=== PATIENT | male | born 1970 | race Caucasian/White ===

== ENCOUNTER → 2021-05-02 11:46 | Outpatient (CLI) | payer OTHER, SELFPAY ==
--- NOTE | 2021-05-02 | DI.MRI.S_ITS ---
PROCEDURE: MR SHOULDER RT WO CON INDICATIONS: Pain in right shoulder TECHNIQUE: Noncontrast oblique coronal T2 fast spin echo with fat saturation, oblique sagittal T1 spin echo and T2 fast spin echo with fat saturation, axial T1 spin echo and T2 fast spin echo with fat saturation through the shoulder. COMPARISON: None. FINDINGS: Image quality: Excellent. Rotator cuff: The supraspinatus, infraspinatus, subscapularis, and teres minor appear intact. There is mild tendinopathy in the distal subscapularis tendon. Sagittal images demonstrate no fatty muscle atrophy. Bones and bursae: No bone marrow contusions or fractures. There is moderate acromioclavicular joint degeneration including periarticular bone marrow and soft tissue edema. The acromion demonstrates conventional anatomy, without an os acromiale. A small amount of subacromial/subdeltoid bursal fluid is present. Capsule and soft tissues: Labrum demonstrates mild degenerative signal in the posterosuperior labrum. The long head of the biceps tendon demonstrates normal location and morphology. The rotator interval appears normal, without fibrosis. The coracohumeral ligament is normal in thickness. IMPRESSION: 1. Moderate acromioclavicular joint degeneration with a small amount of subacromial/subdeltoid bursal fluid. 2. Mild tendinopathy in the subscapularis tendon distally without a discrete rotator cuff tear. Dictated by: Дмитрий Fischer M.D. on 05/02/2021 at 13:38 Approved by: Дмитрий Fischer M.D. on 05/02/2021 at 13:42
== END ==
PROVIDERS: Referring Provider Internal Medicine; Visit Provider Internal Medicine
DX: M25.511 Pain in right shoulder (principal); M19.011 Primary osteoarthritis, right shoulder
CPT/HCPCS: 73221

== ENCOUNTER 2023-08-05 18:02 | Emergency (ER) | payer OTHER, SELFPAY ==
[2023-08-05] VITALS (10 sets, daily range): BP systolic 119–143; BP diastolic 73–94; PULSE 56–64; RESP 16; TEMP 36.4; O2SAT 95–98; BMI 34.7
--- NOTE | 2023-08-05 18:46 | ED.GENADULT ---
HPI - General Adult General Chief complaint: Abdominal Pain Stated complaint: abd and back pain Time Seen by Provider: 08/05/23 18:32 Source: patient and family Mode of arrival: Ambulatory History of Present Illness HPI narrative: 52-year-old male here for evaluation of what initially started as right-sided flank pain a couple days ago and has continued his right-sided flank pain but now has left-sided abdominal pain. Also has had loose stools for the past couple days. No recent travel. No recent antibiotics. No urinary symptoms. No nausea or vomiting. Has had bilateral inguinal hernia repairs in the past but no other abdominal surgeries. No fevers. Has not tried anything for the symptoms prior to arrival. Related Data Allergies Allergy/AdvReac Type Severity Reaction Status Date / Time niacin Allergy Verified 08/05/23 18:16 Review of Systems Constitutional Constitutional: Reports system reviewed and no additional complaints, except as documented Cardiovascular Cardiovascular: Reports system reviewed and no additional complaints, except as documented Respiratory Respiratory: Reports system reviewed and no additional complaints, except as documented Gastrointestinal Gastrointestinal: Reports system reviewed and no additional complaints, except as documented Genitourinary Genitourinary: Reports system reviewed and no additional complaints, except as documented Integumentary/Breasts Skin/Breast: Reports system reviewed and no additional complaints, except as documented Patient History Social History Smoking Status: Former smoker Smoking Status: Former smoker Substance Use Type: marijuana Exam Initial Vital Signs Initial Vital Signs: Vital Signs Temperature 97.5 F L 08/05/23 18:12 Pulse Rate 57 L 08/05/23 18:12 Respiratory Rate 16 08/05/23 18:12 Blood Pressure 131/85 08/05/23 18:12 Pulse Oximetry 98 08/05/23 18:12 Oxygen Delivery Method Room Air 08/05/23 18:12 Const General: cooperative, comfortable and No ill appearing HENMT Head: normal to inspection and normocephalic GI Inspection: normal to inspection Palpation: soft, No firm and tender (Left-sided abdomen) Back/Spine/Pelvis Back: No CVA tenderness Neuro General: patient alert, patient awake and moves all extremities Extrem General: normal to inspection and capillary refill normal Course Orders Ordered: ED Orders 08/05/23 18:30 Complete Blood Count AUTO DIFF Stat Comprehensive Metabolic Panel Stat Lipase Stat 08/05/23 18:46 CT abdomen pelvis w con Stat Discontinued Medications Ondansetron HCl (Ondansetron 4 Mg/2 Ml Inj) 4 mg IV NOW PRN PRN Reason: Nausea And Vomiting Ondansetron HCl (Ondansetron 4 Mg Odt) 4 mg PO NOW PRN PRN Reason: Nausea And Vomiting Vital Signs Vital signs: Vital Signs - 8 hr 08/05/23 18:12 08/05/23 18:18 08/05/23 18:26 Temperature 97.5 F L Pulse Rate 57 L 64 57 L Respiratory Rate 16 Blood Pressure 131/85 Pulse Oximetry 98 95 98 Oxygen Delivery Method Room Air 08/05/23 18:26 08/05/23 18:30 08/05/23 18:31 Temperature Pulse Rate 60 57 L Respiratory Rate Blood Pressure 119/73 Pulse Oximetry 97 98 Oxygen Delivery Method 08/05/23 18:31 08/05/23 19:00 08/05/23 19:00 Temperature Pulse Rate 56 L Respiratory Rate Blood Pressure 137/81 134/81 Pulse Oximetry 96 Oxygen Delivery Method 08/05/23 19:30 08/05/23 20:00 08/05/23 20:30 Temperature Pulse Rate 56 L 57 L 58 L Respiratory Rate Blood Pressure Pulse Oximetry 95 97 98 Oxygen Delivery Method 08/05/23 20:38 08/05/23 20:38 Temperature Pulse Rate 57 L Respiratory Rate Blood Pressure 143/94 H Pulse Oximetry 97 Oxygen Delivery Method Room Air Medical Decision Making Lab Data Lab results reviewed: Yes I reviewed the patient's lab results. 08/05/23 18:30 08/05/23 18:30 Labs: Lab Results 08/05/23 Range/Units 18:30 WBC 6.3 (4.5-11.0) X10^3/uL RBC 4.90 (4.5-5.9) X10^6/uL Hgb 14.9 (13.5-17.5) g/dL Hct 42.9 (41-53) % MCV 87.6 (80-100) fL MCH 30.5 (26-34) PG MCHC 34.8 (30-36) % RDW 13.2 (11.6-14.8) % Plt Count 190 (150-400) X10^3/uL Neut % (Auto) 52.0 (50-75) % Lymph % (Auto) 28.9 (25-40) % [place] % (Auto) 12.7 (3-14) % Eos % (Auto) 5.6 H (2-4) % Baso % (Auto) 0.8 (0-2) % Neut # (Auto) 3300 (6564-5436) /uL Lymph # (Auto) 1800 (2015-7349) /uL [place] # (Auto) 800 (0-900) /uL Eos # (Auto) 400 (0-450) /uL Baso # (Auto) 100 (0-100) /uL Sodium 135 L (137-145) mmol/L Potassium 3.6 (3.4-5.1) mmol/L Chloride 104 (98-107) mmol/L Carbon Dioxide 23 (22-32) mmol/L BUN 13 (9-20) mg/dL Creatinine 0.94 (0.66-1.25) mg/dL Estimated GFR > 60 (>60) mL/min BUN/Creatinine Ratio 13.8 (6-22) Glucose 104 H (70-100) mg/dL Calcium 8.5 (8.4-10.2) mg/dL Total Bilirubin 0.7 (0.2-1.3) mg/dL AST 44 (17-59) IU/L ALT 65 H (<50) IU/L Alkaline Phosphatase 81 (38-126) U/L Total Protein 7.5 (6.3-8.2) g/dL Albumin 4.4 (3.5-5.0) g/dL Globulin 3.1 (1.7-4.1) g/dL Albumin/Globulin Ratio 1.4 (1.0-2.8) Lipase 74 (23-300) U/L Urine Dip Bedside Urine Glucose Negative Bedside Urine Bilirubin - Negative Bedside Urine Ketone - Negative Urine Specific [place] 1.005 Bedside Urine Occult Blood - Negative Bedside Urine pH 6.0 Bedside Urine Protein - Negative Bedside Urine Urobilinogen - Negative Bedside Urine Nitrite - Negative Bedside Urine Leukocytes - Negative Esterase Point of care testing: Urine Dip Bedside Urine Glucose Negative Bedside Urine Bilirubin - Negative Bedside Urine Ketone - Negative Urine Specific [place] 1.005 Bedside Urine Occult Blood - Negative Bedside Urine pH 6.0 Bedside Urine Protein - Negative Bedside Urine Urobilinogen - Negative Bedside Urine Nitrite - Negative Bedside Urine Leukocytes - Negative Esterase Imaging Data CT scan - abdomen/pelvis: Radiologist's Impression: PROCEDURE: CT ABDOMEN PELVIS W CON INDICATIONS: R flank pain and LLQ abd pain TECHNIQUE: After the administration of intravenous contrast, axial sections acquired from the lung bases to the pubic symphysis. Coronal and sagittal reformats were performed. For radiation dose reduction, the following was used: automated exposure control, adjustment of mA and/or kV according to patient size. COMPARISON: Outside Film, CT, CT ABDOMEN PELVIS WITH CONTRAST, 07/08/2020, 9:52. FINDINGS: Image quality: Diagnostic. Lower Chest: No significant findings. ABDOMEN: Liver: No solid mass. There are a few scattered subcentimeter hepatic hypodensities which are too small to accurately characterize but likely represent cysts versus hemangiomas. Gallbladder: No radiopaque gallstones or wall thickening. Biliary ducts: No biliary dilation. Pancreas: No ductal dilation. Spleen: Mild splenomegaly. Adrenal Glands: No adrenal nodules. Kidneys and Ureters: No hydronephrosis. No solid mass. No complex renal cystic lesion which requires follow up. Stomach and Bowel: Normal colonic caliber, without significant wall thickening. Scattered colonic diverticula without acute inflammation. Normal appendix. Peritoneum: No abnormal intraperitoneal fluid. No free air. Ventral Wall: There is a fat-containing umbilical hernia without acute inflammation. Abdominal Nodes: No retroperitoneal or mesenteric adenopathy by size criteria. Vessels: Scattered atherosclerotic calcifications of the abdominal aorta and iliac vessels without aneurysmal dilatation. The inferior vena cava appears patent. PELVIS: Pelvic Organs: Unremarkable. Bladder: No bladder wall thickening, accounting for underdistention. Pelvic Nodes: No enlarged lymph nodes. Miscellaneous: Stable postsurgical changes of left inguinal hernia repair. Stable appearance of lobulated collection near the proximal margins of the right inguinal canal. Bones: No aggressive osseous abnormality. IMPRESSION: CT abdomen and pelvis without acute abnormalities to explain patient's symptoms. Colonic diverticulosis without acute diverticulitis. Normal appendix. No evidence for obstructive uropathy. Other chronic findings as above. MDM Narrative Medical decision making narrative: Patient does have a benign exam. Labs are unremarkable. CT scan shows no acute pathology. No skin changes concerning for zoster. No fevers. No urinary symptoms. Unsure the exact etiology however there was no indication for antibiotics. No indication for emergent surgical consultation. He has not had a colonoscopy up to this point. Advised that he talk with his primary doctor about further workup and was given specific return precautions. He expressed understanding and agreement. Discharge Plan Departure Patient Disposition: Home Clinical Impression: Acute right flank pain, Abdominal pain Instructions: DI for Abdominal Pain-Adult Activity Restrictions/Additional Instructions: I do recommend that you talk with your primary doctor about further evaluation if your symptoms do not improve in the next couple days. If your symptoms worsen please return to the emergency department. You can try Tylenol and or ibuprofen for discomfort. Return to the emergency department for new symptoms. Referrals: Miscellaneous,Doctor, [Primary Care Provider] - Stand Alone Forms: Patient Portal/API
[2023-08-05 18:49] LABS: Add Manual Diff / Slide Review NO; Basophils Absolute Auto 100 /uL (0-100); Basophils Percent Auto 0.8 % (0-2); Eosinophils Absolute Auto 400 /uL (0-450); Eosinophils Percent Auto 5.6 % (2-4); Hematocrit 42.9 % (41-53); Hemoglobin 14.9 g/dL (13.5-17.5); Lymphocytes Absolute Auto 1800 /uL (1100-4500); Lymphocytes Percent Auto 28.9 % (25-40); Mean Corpuscular HGB Conc 34.8 % (30-36); Mean Corpuscular Hemoglobin 30.5 PG (26-34); Mean Corpuscular Volume 87.6 fL (80-100); Monocytes Absolute Auto 800 /uL (0-900); Monocytes Percent Auto 12.7 % (3-14); Neutrophils Absolute Auto 3300 /uL (1500-7000); Platelet Count 190 X10^3/uL (150-400); Red Cell Distribution Width 13.2 % (11.6-14.8); White Blood Cell Count 6.3 X10^3/uL (4.5-11.0)
[2023-08-05 18:57] LABS: Alanine Aminotransferase 65 IU/L (<50); Albumin 4.4 g/dL (3.5-5.0); Albumin Globulin Ratio 1.4 (1.0-2.8); Alkaline Phosphatase 81 U/L (38-126); Aspartate Aminotransferase 44 IU/L (17-59); BUN Creatinine Ratio 13.8 (6-22); Bilirubin Total 0.7 mg/dL (0.2-1.3); Blood Urea Nitrogen 13 mg/dL (9-20); Calcium 8.5 mg/dL (8.4-10.2); Carbon Dioxide 23 mmol/L (22-32); Chloride 104 mmol/L (98-107); Estimated Glomerular Filt Rate > 60 mL/min (>60); Globulin 3.1 g/dL (1.7-4.1); Glucose 104 mg/dL (70-100); HEMOLYSIS < 15 (0-50); Lipase 74 U/L (23-300); Potassium 3.6 mmol/L (3.4-5.1); Sodium 135 mmol/L (137-145); Total Protein 7.5 g/dL (6.3-8.2)
== END 2023-08-05 20:42 | disposition home or self-care (01) ==
PROVIDERS: Emergency Provider Emergency Medicine
DX: R10.9 Unspecified abdominal pain (principal)
CPT/HCPCS: 36415; 74177; 80053; 81003; 83690; 85025; 99283; 99284; Q9967